=== PATIENT | female | born 1945 | race Caucasian/White ===

== ENCOUNTER 2017-01-25 19:06 | Emergency (ER) | payer MEDICARE, OTHER ==
[~2017-01-25 19:06] MED LIST: ANTIBIOTIC; ANTIVERT25 MG; ASPIR 8181 MG PO; ASPIR-LOW81 M1 PO; BACTRIM DS TAB1 EAC2 PO; BACTRIM DS1 TAB PO; BACTROBAN15 GM TP; CALCIUM +D & M1 EAC1 PO; CALCIUM 600 W/V1 TAB; CEFDINIR300 M1 PO; CYCLOBENZAPRINE10 M1 PO; DOCUSATE SODIU100 M2 PO; EPA-DHA SOFTGEL1 CAP PO; HYDROCHLOROTH12.5 M2 PO; IBUPROFEN200 M3 PO; KEFLEX500 M4 PO; KEFLEX500 MG PO; KENALOG80 GM TP; LEVOXYL100 MCG; LOPERAMIDE2 M2 PO; LOTRISONE CREAM15 GM TP; MACROBID 100 M100 M1 PO; MELOXICAM15 MG PO; MOBIC15 M2 PO; MOBIC15 MG PO; MULTIVITAMIN1 TAB; MULTIVITAMIN1 TAB PO; NEXIUM40 M1 PO; NORCO 5-325 TA1 EACH PO; NORCO 5/325 TAB1 TAB PO; OMEPRAZOLE40 M2 PO; PREDNISONE10 M1 PO; PYRIDIUM100 M2 PO; SIMVASTATIN10 MG PO; SYNTHROID100 MCG PO; SYNTHROID112 MC1 PO; SYNTHROID125 MCG PO; TRAMADOL HCL50 M2 PO; TYLENOL WITH C1 EACH PO; VALIUM5 M1 PO; XARELTO15 M1 PO; XARELTO20 M1 PO; ZANTAC150 MG PO; ZOCOR10 M1 PO; ZOCOR20 MG PO; ZOFRAN ODT4 MG PO; ZOFRAN4 MG PO
[2017-01-25] MEDS ORDERED: LOTRISONE CREAM15 GM TP ×2 (19:12→20:55)
[2017-01-25] MEDS ORDERED: MOBIC15 M2 PO (19:13)
[2017-01-25] MEDS ORDERED: ZOCOR10 M1 PO (19:13)
[2017-01-25] MEDS ORDERED: HYDROCHLOROTH12.5 M3 PO (19:13)
[2017-01-25] MEDS ORDERED: SYNTHROID112 MC1 PO (19:13)
== END 2017-01-25 21:02 ==
LOC: EDMED 19:06
DX: B37.89 Other sites of candidiasis (principal); I10 Essential (primary) hypertension; E78.00 Pure hypercholesterolemia, unspecified; Z90.49 Acquired absence of other specified parts of digestive tract; Z88.0 Allergy status to penicillin; Z88.8 Allergy status to other drugs, medicaments and biological substances

== ENCOUNTER 2017-02-01 17:40 | Emergency (ER) | payer MEDICARE, OTHER ==
[~2017-02-01 17:40] MED LIST changes: +HYDROCHLOROTH12.5 M3 PO
[2017-02-01 18:22] LABS: URINE BILIRUBIN MODERATE (NEG); URINE BLOOD LARGE (NEG); URINE GLUCOSE (UA) NEGATIVE (NEG); URINE KETONE SMALL (NEG); URINE LEUKOCYTE ESTERASE POSITIVE (NEG); URINE NITRITE POSITIVE (NEG); URINE PH 6.5 (5.0-8.0); URINE PROTEIN LARGE (NEG); URINE SPECIFIC GRAVITY 1.015 (1.003-1.030)
[2017-02-01 18:23] LABS: URINE APPEARANCE CLOUDY; URINE COLOR ORANGE
[2017-02-01 18:30] LABS: URINE RBC FULL FIELD /[HPF] (0-5); URINE WBC FULL FIELD /[HPF] (0-5)
[2017-02-01 18:31] LABS: URINE BACTERIA 3+
[2017-02-01] MEDS ORDERED: PYRIDIUM100 M2 PO (20:33)
[2017-02-01] MEDS ORDERED: MACROBID 100 M100 M1 PO (20:44)
[2017-02-01] MEDS ORDERED: PYRIDIUM200 M2 PO (20:44)
== END 2017-02-01 20:52 ==
LOC: EDMED 17:40
PROVIDERS: Emergency Medicine
DX: N30.90 Cystitis, unspecified without hematuria (principal); I10 Essential (primary) hypertension; Z88.0 Allergy status to penicillin; Z88.8 Allergy status to other drugs, medicaments and biological substances